=== PATIENT | male | born 2000 | race Caucasian/White ===

== ENCOUNTER 2025-03-24 14:19 | Emergency (ER) | payer MEDICAID, OTHER ==
[~2025-03-24] VITALS: Ht 182.9 cm; Wt 98.0 kg
[2025-03-24 14:23] VITALS: O2SAT 98
[2025-03-24 14:27] VITALS: O2SAT 97
[2025-03-24 14:31] VITALS: TEMP 36.7
[2025-03-24] MEDS: ONDANSETRON 4MG ODT PO ONE (15:48)
[2025-03-24] MEDS: MAGNESIUM/ALUMINUM HYDROXIDE/SIMETHICONE 30ML UDC PO ONE (15:48)
[2025-03-24] MEDS: FAMOTIDINE 20MG TABLET PO ONE (15:48)
[2025-03-24 15:49] VITALS: BP 127/78; PULSE 88; RESP 18
[2025-03-24] MEDS: KETOROLAC 15MG/ML VIAL IV ONE (15:49)
[2025-03-24] MEDS: SODIUM CHLORIDE 0.9% 1,000 ML IV ONE (15:49)
[2025-03-24 16:00] LABS: BASOPHILS % 0.2 % (0.0-2.0); EOSINOPHILS % 0.5 % (0.0-5.0); HEMATOCRIT. 45.2 % (42.0-52.0); HEMOGLOBIN. 15.5 g/dL (14.0-18.0); LYMPHOCYTES % 12.1 % (20.0-50.0); MEAN PLATELET VOLUME 9.0 fl (7.4-10.4); MONOCYTES % 5.1 % (2.0-8.0); NEUTROPHILS % 82.1 % (40.0-76.0); PLATELET 224 x1000/uL (130-400); RED BLOOD CELL COUNT 5.31 mill/uL (4.7-6.1); RED CELL DISTRIBUTION WIDTH 13.4 % (11.6-14.6)
[2025-03-24 16:12] LABS: CREATININE 0.9 mg/dL (0.6-1.3); ETHANOL BLOOD < 10 mg/dL (<10); UREA NITROGEN BLOOD 15 mg/dL (9-23)
[2025-03-24 16:14] LABS: ASPARTATE AMINOTRANSFERASE 24 IU/L (<34); BILIRUBIN DIRECT 0.1 mg/dL (<=3.0); BILIRUBIN TOTAL 0.5 mg/dL (0.1-1.0); PROTEIN TOTAL 7.4 g/dL (6.0-8.3)
[2025-03-24] MEDS ORDERED: ONDA-239 PO (18:17)
== END 2025-03-24 19:25 | disposition home or self-care (01) ==
LOC: ER 14:19
DX: A08.4 Viral intestinal infection, unspecified (principal); R11.2 Nausea with vomiting, unspecified
CPT/HCPCS: 80076; 80048; 80320; 83690; 85025; 36415; 76700; 96361; 96374; 99285; Q0162; J1885; J7030; Z7610; G0480